=== PATIENT | male | born 1965 | race Two or more races ===

== ENCOUNTER 2017-12-20 11:01 | Outpatient (CLI) | payer OTHER | END 2017-12-20 17:01 | disposition home or self-care (01) | LOC: NUCLEAR 11:01 | DX: I20.1 Angina pectoris with documented spasm (principal) ==

== ENCOUNTER 2022-03-09 07:45 | Outpatient (CLI) | payer OTHER | END 2022-03-09 07:48 | disposition home or self-care (01) | LOC: NUCLEAR 07:45 | PROVIDERS: ATTEND Internal Medicine Cardiovascular Disease | DX: I20.1 Angina pectoris with documented spasm (principal) | CPT/HCPCS: 78452; 93017; A9500 ==